=== PATIENT | female | born 1985 | race Caucasian/White ===

== ENCOUNTER 2021-08-06 13:32 | Outpatient (CLI) | payer OTHER, SELFPAY ==
--- NOTE | ~2021-08-06 | CT_ITS ---
EXAMINATION: CT sinus wo con DATE: 08/06/2021 13:54 INDICATION: Right facial pressure, headache. Chronic sinusitis. TECHNIQUE: Computed tomography (CT) of the paranasal sinuses was performed without contrast. Iterativ e reconstruction technique was employed. Exam dose: 258.33 mGy-cm total exam DLP. COMPARISON: None FINDINGS: There is prominent rightward deviation of the nasal septum. There is prominent asymmetric soft tissue swelling of the left middle and inferior nasal turbinates. The ostiomeatal units are patent bilaterally. There is a small posterolateral wall right maxillary mucous retention cyst. The paranasal sinuses ot herwise are normally developed and aerated and clear. Normal development and aeration of the mastoid air cells. Middle and inner ear apparatus appear normal bilaterally. IMPRESSION: Rightward deviation of nasal septum Soft tissue swelling of left nasal turbinates Reviewed, dictated and finalized at [facility]. Reviewed, dictated and finalized at [facility].
== END 2021-08-06 13:33 | disposition home or self-care (01) ==
PROVIDERS: PCP Family Medicine; Visit Provider Otolaryngology
DX: J32.9 Chronic sinusitis, unspecified (principal); J34.89 Other specified disorders of nose and nasal sinuses; R51.9 Headache, unspecified; R44.8 Other symptoms and signs involving general sensations and perceptions; J34.2 Deviated nasal septum; M79.89 Other specified soft tissue disorders
CPT/HCPCS: 70486